=== PATIENT | male | born 1970 | race Caucasian/White ===

== ENCOUNTER 2019-01-01 10:36 | Emergency (ER) | payer BC ==
--- NOTE | 2019-01-01 11:15 | EDM.PDOC ---
ED HPI GENERAL MEDICAL PROBLEM - General Chief Complaint: General Stated Complaint: ABCESS TOOTH Time Seen by Provider: 01/01/19 11:10 Source of Information: Reports: Patient History Limitations: Reports: No Limitations - History of Present Illness INITIAL COMMENTS - FREE TEXT/NARRATIVE: Presents with left lower dental pain since yesterday and facial swelling since last night. Taking Ibuprofen for pain. Onset Date: 12/31/18 Quality: Reports: Ache Severity: Moderate Associated Symptoms: Denies: Confusion, Chest Pain, Fever/Chills, Headaches, Shortness of Breath Treatments [employer]: Reports: NSAIDS tooth left side Pain Score (Numeric/FACES): 7 - Related Data Allergies Allergy/AdvReac Type Severity Reaction Status Date / Time No Known Allergies Allergy Verified 01/01/19 11:00 Home Meds: Home Meds Penicillin V Potassium [Veetids] 500 mg PO QID #40 tab 01/01/19 [Rx] Past Medical History - Past Health History Medical/Surgical History: Denies Medical/Surgical History Social & Family History - Tobacco Use Smoking Status *Q: Never Smoker ED ROS GENERAL - Review of Systems Review Of Systems: ROS reveals no pertinent complaints other than HPI. ED EXAM, GENERAL - Physical Exam Exam: See Below Exam Limited By: No Limitations General Appearance: Alert, No Apparent Distress Eye Exam: Bilateral Eye: EOMI, PERRL Ears: Normal External Exam Nose: Normal Inspection Throat/Mouth: No Airway Compromise, Other (tenderness, caries and temporary filling present left 1st molar with surrounding gingival swelling, left lower facial swelling present) Head: Atraumatic, Normocephalic Neck: Full Range of Motion Respiratory/Chest: No Respiratory Distress Back Exam: Full Range of Motion Extremities: Normal Range of Motion Neurological: Alert, Normal Cognition, No Motor/Sensory Deficits Psychiatric: Normal Affect, Normal Mood Skin Exam: Warm, Dry, Intact Course - Vital Signs Last Recorded V/S: Last Vital Signs Temp 36.7 C 01/01/19 10:54 Pulse 74 01/01/19 10:54 Resp 16 01/01/19 10:54 BP 137/84 01/01/19 10:54 Pulse Ox 99 01/01/19 10:54 Departure - Departure Time of Disposition: 11:14 Disposition: Home, Self-Care 01 Condition: Good Clinical Impression: Dental abscess - Discharge Information *PRESCRIPTION DRUG MONITORING PROGRAM REVIEWED*: No *COPY OF PRESCRIPTION DRUG MONITORING REPORT IN PATIENT DESI: Not Applicable Prescriptions: Penicillin V Potassium [Veetids] 500 mg PO QID #40 tab Instructions: Dental Abscess Referrals: Carlos A Heard MD [Primary Care Provider] - Additional Instructions: Fill prescription for Penicillin and take as directed. Continue Ibuprofen. Follow up with a dentist in 3-4 days, sooner if symptoms worsen.
== END 2019-01-01 11:30 | disposition home or self-care (01) ==
LOC: FB.ED 10:36
DX: K04.7 Periapical abscess without sinus (principal)
CPT/HCPCS: 99282